=== PATIENT | female | born 1995 | race African-American/Black ===

== ENCOUNTER 2019-06-03 05:00 | Inpatient (IN) | payer OTHER ==
[2019-06-01 16:50] VITALS: BMI 21.6
[2019-06-03] MEDS ORDERED: ONDANSETRON 4 MG/2 ML VIAL IVPUSH PRN (06:56)
[2019-06-03] MEDS ORDERED: BISACODYL 5 MG TABLET.DR (FP) PO PRN (06:56)
[2019-06-03] MEDS ORDERED: ACETAMINOPHEN 325 MG TABLET (FP) PO PRN (06:56)
[2019-06-03] MEDS ORDERED: DOCUSATE SODIUM 100 MG CAPSULE (FP) PO PRN (06:56)
[2019-06-03] MEDS ORDERED: ceFAZolin SODIUM 1 GM VIAL ONE ×3 (07:03→17:35)
[2019-06-03] MEDS ORDERED: ROCURONIUM BROMIDE 50 MG/5 ML SYRINGE ONE (07:13)
[2019-06-03] MEDS ORDERED: PROPOFOL 20 ML ONE (07:13)
[2019-06-03] MEDS ORDERED: MIDAZOLAM HCL 2 MG/2 ML SINGLE DOSE VIAL ONE ×3 (07:14→07:22)
[2019-06-03] MEDS ORDERED: ROPIVACAINE HCL 0.5% 30ML VIAL ONE (07:16)
[2019-06-03] MEDS ORDERED: VASOPRESSIN 20 UNITS/ML VIAL IV ONE ×2 (07:29→07:30)
--- NOTE | 2019-06-03 07:35 | HP ---
History & Physical Update - History History: No Change - Physical Physical: No Change - Assessment Assessment: No Change - Plan Plan: No Change (Full H&P from 05/07/19 in paper chart)
[2019-06-03] MEDS ORDERED: ceFAZolin SODIUM 1 GM VIAL IVPB ONE (08:04)
[2019-06-03] MEDS ORDERED: LIDOCAINE HCL/PF 2% SDV 5ML VIAL ONE ×2 (08:11→12:35)
[2019-06-03] MEDS ORDERED: KETOROLAC TROMETHAMINE 30 MG/1 ML VIAL ONE ×2 (08:12→13:05)
[2019-06-03] MEDS ORDERED: DEXAMETHASONE SOD PHOSPHATE 4 MG/1 ML VIAL ONE ×2 (08:12→12:39)
[2019-06-03] MEDS ORDERED: GLYCOPYRROLATE 0.2 MG/1 ML VIAL ONE ×2 (08:34→13:05)
[2019-06-03] MEDS ORDERED: NEOSTIGMINE METHYLSULFATE 0.5 MG/ML - 10 ML MDV ONE ×2 (08:34→13:05)
--- NOTE | 2019-06-03 09:44 | OP ---
DATE OF OPERATION: 06/03/2019 PREOPERATIVE DIAGNOSIS: Leiomyomatous uterus. OPERATION: Abdominal myomectomy, cauterization of right ovarian endometriosis, and right ovarian cystectomy. POSTOPERATIVE DIAGNOSIS: Leiomyomatous uterus, Intramural myoma, right ovarian endometrioma, right ovarian cyst, and right endometriosis. SURGEON: Linda Acevedo MD DESCRIPTION OF PROCEDURE: The patient was taken to the operating room, placed in the supine position, prepped and draped in the usual sterile fashion. A time-out was performed in accordance with hospital regulations. A scalpel was then used to make a Pfannenstiel skin incision. Cautery was then used to go through the layers of the abdominal wall to the level of the fascia. The fascia was cut in the midline and cautery was then used to open the fascia in a smiling fashion. Mariya was then used to bluntly and sharply dissect the rectus muscle off the fascia. The muscle was split in the midline. The peritoneal cavity was entered, and carried upwards and downwards. A leiomyomatous uterus was exteriorized. A right ovarian cyst was noted, as well as right ovarian endometriosis. Pitressin was infiltrated in the serosa of the subserosal myoma, which was located pushing into the bladder. Cautery was then used to cut the uterus. Sharp and blunt dissection was used to exteriorize the 5-cm myoma. The myoma did not go into the cavity. 0 Vicryl was then used to close the muscle of the uterus in continuous locking fashion. An imbricating stitch using 2-0 V-Loc was then done. Attention was then drawn to the right ovary, where 2 cysts were noted, clear cysts, as well as an endometriosis. Cystectomy was performed and cauterization of endometriosis was done. 2-0 Vicryl was then used to close the cavity and a portion of Interceed was placed on the right ovary. Adhesions were noted and were removed in the fundus of the uterus. Interceed was placed and securely fixed on the anterior aspect of the incision of the uterus. The uterus was then interiorized. The pelvic cavity was cleaned with clean lap pads. The peritoneum was then closed using 0 Vicryl suture. The fascia was then closed using 0 Vicryl suture in 2 parts. Subcutaneous was then approximated using 2-0 Vicryl suture, and the skin was then closed using 3-0 Vicryl in subcuticular fashion. The wound was washed and dressed. The patient tolerated the procedure well and was taken to the recovery room in stable condition. LINDA ACEVEDO M.D. [id number] MTDD
[2019-06-03] MEDS ORDERED: traMADol HCL 50 MG TABLET PO PRN (10:49)
[2019-06-03] MEDS ORDERED: oxyCODONE HCL 5 MG TABLET PO PRN ×4 (10:49→10:53)
[2019-06-03] MEDS ORDERED: ONDANSETRON 4 MG/2 ML VIAL IVPUSH ONE (11:00)
[2019-06-03] MEDS ORDERED: ONDANSETRON 4 MG/2 ML VIAL ONE (11:03)
[2019-06-03] MEDS ORDERED: PROMETHAZINE HCL 25 MG/1 ML VIAL ONE (12:11)
[2019-06-03] MEDS ORDERED: PROMETHAZINE HCL 25 MG/1 ML VIAL IVPB ONE (12:18)
--- NOTE | 2019-06-03 12:21 | SURG ---
Surgery Manager Ccu Note Manager Ccu: Jorge Pedro PA-C Date of Service: 06/03/19 Diagnosis: Fibroid uterus, ovarian cyst Procedure: Abdominal myomectomy, Rt ovarian cystectomy, lysis of adhesions I was present for the entirety of the operative procedure. For further detail, please refer to operative report. Visit type - Case Type Case Type: Scheduled - Emergency Emergency Visit: No - New patient This patient is new to me today: Yes Date on this admission: 06/03/19 - Critical Care Critical Care patient: No
[2019-06-03] MEDS: LACTATED RINGERS SOLUTION 1,000 ML IV SCH ×2 (16:47→22:57)
[2019-06-03] MEDS ORDERED: DEXTROSE 5%-WATER - 50 ML IVPB ONE (17:35)
[2019-06-03] MEDS: CEFAZOLIN 1 GM in DEXTROSE 5%-WATER - 50 ML IVPB SCH ×2 (17:48→19:35)
[2019-06-03] MEDS: IBUPROFEN 800 MG/8 ML IJ IVPB PRN (18:50)
[2019-06-03] MEDS: oxyCODONE HCL 10 MG SUSTAINED ACTING TABLET PO SCH ×2 (19:00→21:33)
[2019-06-03 19:05] LABS: HEMATOCRIT 37.7 % (32.4-45.2); HEMOGLOBIN 12.4 GM/dL (10.7-15.3); MCH 31.3 pg (25.7-33.7); MEAN CELL VOLUME 94.9 fl (80-96); MEAN PLT VOLUME 8.5 fl (7.5-11.1); PLATELET COUNT 284 K/MM3 (134-434); RBC 3.97 M/mm3 (3.60-5.2); RDW 12.7 % (11.6-15.6); WHITE BLOOD COUNT 14.6 K/mm3 (4.0-10.0)
[2019-06-03 19:37] LABS: BLOOD UREA NITROGEN 6.6 mg/dL (7-18); CALCIUM 9.1 mg/dL (8.5-10.1); CREATININE 0.7 mg/dL (0.55-1.3)
[2019-06-04] MEDS ORDERED: ceFAZolin SODIUM 1 GM VIAL ONE (01:13)
[2019-06-04] MEDS ORDERED: DEXTROSE 5%-WATER - 50 ML IVPB ONE (01:14)
[2019-06-04] MEDS: CEFAZOLIN 1 GM in DEXTROSE 5%-WATER - 50 ML IVPB SCH (01:19)
[2019-06-04] MEDS ORDERED: oxyCODONE HCL 5 MG TABLET PO PRN ×2 (06:56)
--- NOTE | 2019-06-04 08:27 | PN ---
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 C/o incisional tenderness. Adequate pain control with medications ordered. She has gotten OOB and ambulated unassisted. Spivey remains to gravity. Denies n/v/f/c, CP, palpitations, SOB or GUAJARDO. Last Vital Signs Temp Pulse Resp BP Pulse Ox 98.2 F 102 H 20 120/73 98 06/04/19 05:47 06/04/19 05:47 06/04/19 05:47 06/04/19 05:47 06/03/19 21:00 Gen: nad Abd: all surgical ports c/d/i : spivey to gravity (clear) LE: scds bilat. soft. supple, nt Problem List - Problems (1) S/P abdominal hysterectomy Assessment/Plan: POD #1 s/p Abdominal myomectomy, Rt ovarian cystectomy, lysis of adhesions DC spivey and begin TOV OOB and ambulate Pain management PRN Tylenol for fever > 100.4F Incentive spirometer Reg diet DVT PPX f/u CBC DC planning in AM Code(s): Z90.710 - ACQUIRED ABSENCE OF BOTH CERVIX AND UTERUS
[2019-06-04] MEDS: LACTATED RINGERS SOLUTION 1,000 ML IV SCH ×2 (08:40→22:33)
[2019-06-04] MEDS: SIMETHICONE 80 MG TAB.CHEW (FP) PO PRN ×2 (08:44→23:38)
[2019-06-04 09:02] LABS: HEMATOCRIT 33.7 % (32.4-45.2); HEMOGLOBIN 11.2 GM/dL (10.7-15.3); MCH 31.4 pg (25.7-33.7); MCHC 33.2 g/dl (32.0-36.0); MEAN CELL VOLUME 94.5 fl (80-96); MEAN PLT VOLUME 8.6 fl (7.5-11.1); PLATELET COUNT 258 K/MM3 (134-434); RBC 3.56 M/mm3 (3.60-5.2); RDW 12.8 % (11.6-15.6); WHITE BLOOD COUNT 12.2 K/mm3 (4.0-10.0)
[2019-06-04 09:10] LABS: CALCIUM 8.5 mg/dL (8.5-10.1); CREATININE 0.7 mg/dL (0.55-1.3); POTASSIUM 3.7 mmol/L (3.5-5.1)
[2019-06-04] MEDS: ENOXAPARIN NA (PORCINE) 40 MG/0.4 ML DISP.SYRIN SQ SCH (10:41)
[2019-06-04] MEDS: oxyCODONE HCL 10 MG SUSTAINED ACTING TABLET PO SCH ×2 (10:41→21:06)
[2019-06-04] MEDS: IBUPROFEN 800 MG/8 ML IJ IVPB PRN (13:13)
[2019-06-05] MEDS: oxyCODONE HCL 10 MG SUSTAINED ACTING TABLET PO SCH (09:54)
[2019-06-05] MEDS: ENOXAPARIN NA (PORCINE) 40 MG/0.4 ML DISP.SYRIN SQ SCH (09:55)
[2019-06-05] MEDS: LACTATED RINGERS SOLUTION 1,000 ML IV SCH (09:56)
[2019-06-05 10:05] VITALS: BP 145/85; PULSE 106; TEMP 97.8
--- NOTE | 2019-06-05 11:14 | DS ---
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 Vital Signs: Vital Signs Temperature 97.8 F 06/05/19 10:00 Pulse Rate 106 H 06/05/19 10:00 Respiratory Rate 06/05/19 10:00 Blood Pressure 145/85 06/05/19 10:00 O2 Sat by Pulse Oximetry (%) 98 06/04/19 21:00 Constitutional: Yes: Well Nourished, No Distress Gastrointestinal: Yes: WNL, Soft Wound/Incision: Yes: Clean/Dry, Well Approximated Psychiatric: Yes: WNL, Alert, Oriented Labs: CBC, BMP 06/04/19 07:55 06/04/19 07:55 Discharge Summary Problems reviewed: Yes Reason For Visit: LEIOMYOM OF UTERUS Current Active Problems S/P abdominal hysterectomy (Acute) Procedures: Principal: Abdominal myomectomy Hospital Course: unremarkable Condition: Good - Instructions Diet, Activity, Other Instructions: Dr. Linda cAevedo Deputy Harbormaster discharge instructions Physical activity Resume your normal everyday activity as tolerated no heavy lifting or exercise until seen by your surgeon. You may walk unlimited ju of and climb stairs. You may resume driving the car when you feel safe and comfortable behind the wheel. No sexual activity as instructed by Dr. Acevedo. Wound care If you have a bandage, leave it on, and keep dry for 48-72 hours. After that time discard the outer bandage. If they are tapes on the skin under the out of bandage leave them in place. They will peel off in the next 7 to 10 days. Do Not Peel them off. You may shower the day after surgery. If there are tapes present on the skin, you may shower over them. Diet There are no dietary restrictions. Eat healthy, high-fiber foods. Drink 6 to 8 glasses of liquid each day. This will assist in keeping your bowels are regular. Pain management You may take Tylenol or acetaminophen or Ibuprofen (for example, Motrin, Advil etc.) from my pain prescription medication is ordered should be taken as prescribed for moderate to severe pain. Call Dr. Acevedo for any of the following: Severe pain not relieved by medication Fever of 101 or higher Excessive bleeding or drainage on dressing Inability to urinate Call the office at [phone] for an appointment in seven days. Disposition: HOME - Home Medications Comprehensive Discharge Medication List: Ambulatory Orders Diclofenac Sodium 50 mg PO PRN PRN 06/01/19 Ferrous Sulfate 325 mg PO BID 06/01/19 Ibuprofen [Motrin -] 600 mg PO QID #28 tablet 06/05/19
--- NOTE | 2019-06-07 14:48 | PATH ---
Surgical Pathology Report Patient Name: LUCIANO CASSIDY Med. Rec. #: [id number] /Age/Gender: 1995 (Age: 23) / F Account: [id number] Location: [address] [place] [address]/[facility] Taken: 06/03/2019 Received: 06/03/2019 Reported: 06/07/2019 Physicians: Linda Acevedo M.D. Specimen(s) Received A: FIBROID B: RIGHT OVARIAN CYST C: ADHESIONS Clinical History Leiomyoma of uterus Final Diagnosis A. FIBROID, ABDOMINAL MYOMECTOMY: 97 G, LEIOMYOMA, WITH DEGENERATIVE CHANGES AND DYSTROPHIC CALCIFICATION. B. OVARIAN CYST, RIGHT, CYSTECTOMY: CONSISTENT WITH ENDOMETRIOSIS. SEE COMMENT. C. ADHESIONS, EXCISION: DENSE FIBROUS ADHESIONS WITH AREAS CONSISTENT WITH ENDOMETRIOSIS. SEE COMMENT. Comment: Part B & C, Immunohistochemical stains performed at [place], [place] ([id number]) and interpreted at [facility] show CD10 highlights endometrial stroma. Positive and negative controls (internal if applicable) show appropriate results. Electronically Signed Sinai Smith M.D. Gross Description A. Received in formalin labeled "fibroid," is a 97 g, 7.0 x 6.3 x 4.5 cm calcified fibroid. Sectioning reveals degenerative parenchyma. Marketing Agent sections are submitted in 4 cassettes, following decalcification. B. Received in formalin labeled "right ovarian cyst," are 3 quick-pink soft tissue fragments ranging from 0.7 x 0.4 x 0.2 cm to 1.0 x 0.8 x 0.3 cm, possibly consistent with portions of a disrupted ovarian cyst. The specimens are submitted in toto in one cassette. C. Received in formalin labeled "adhesions," is a 2.8 x 1.6 x 0.3 cm aggregate of red-brown, hemorrhagic portions of soft tissue. The specimen is submitted in toto in one cassette. /06/03/2019 saudi06/03/2019
== END 2019-06-05 14:32 | disposition home or self-care (01) | DRG 513 ==
LOC: JSAMEDAYSX 05:00 → J6S 16:49
PROVIDERS: ADMIT Obstetrics & Gynecology; ATTEND Obstetrics & Gynecology
PROC: 0U5B0ZZ Destruction of Endometrium, Open Approach (ICD-10-PCS; 2019-06-03)
PROC: 0UB00ZZ Excision of Right Ovary, Open Approach (ICD-10-PCS; 2019-06-03)
PROC: 0UN90ZZ Release Uterus, Open Approach (ICD-10-PCS; 2019-06-03)
PROC: 0UB90ZZ Excision of Uterus, Open Approach (ICD-10-PCS; principal; 2019-06-03 07:30)
DX: N80.1 Endometriosis of ovary (principal); D25.2 Subserosal leiomyoma of uterus; N73.6 Female pelvic peritoneal adhesions (postinfective)
CPT/HCPCS: 36415; 80048; 84703; 85027; 86850; 86900; 86901; 88304-TC; 88305-TC; 94010; 94760

== ENCOUNTER 2019-07-26 09:58 | Emergency (ER) | payer OTHER ==
[2019-07-26 10:22] VITALS: BMI 23.3
[2019-07-26] MEDS ORDERED: SODIUM CHLORIDE 1,000 ML IV ONE ×3 (10:51→16:42)
[2019-07-26] MEDS ORDERED: ACETAMINOPHEN 1000 MG/100 ML VIAL (NON FORMULARY) IVPB ONE (11:37)
--- NOTE | 2019-07-26 11:37 | PDOC ---
Documentation entered by Shanell Garcia SCRIBE, acting as scribe for Fredrick Del Rosario MD. Fredrick Del Rosario MD: This documentation has been prepared by the Radha toribio Brenda, SCRIBE, under my direction and personally reviewed by me in its entirety. I confirm that the documentation accurately reflects all work, treatment, procedures, and medical decision making performed by me. History of Present Illness - General Chief Complaint: Pain Stated Complaint: SENT BY DOC Time Seen by Provider: 07/26/19 10:51 History Source: Patient Exam Limitations: No Limitations - History of Present Illness Initial Comments: 07/26/19 10:56 The patient is a 24 year old female with no significant PMH who presents to the ED for vaginal pressure-like pain. Patient reports that she underwent a Myomectomy on 06/17/2019, where she felt subsequent pain in her vaginal area. Pat ient reports that the pain s/p surgery subsided and she felt fine during the month of June, with normal bowel movements and a normal menstrual period in the first week of June. Patient states that on 07/22/2019 she began to feel pressure-like pain in her vagina which was exacerbated by movements, urinating and bowel movements. Patient reports that she thought it was gas due to slight difficulty passing a bowel movement but states that the pain became progressively worse. Patient denies any sexual intercourse since 05/13. The patient denies vaginal bleeding and vaginal discharge. Denies chest pain, palpitations, shortness of breath, headache and dizziness. Denies fever, chills, vomiting, diarrhea. Denies dysuria, frequency, urgency and hematuria. Allergies: NKA Past surgical history: Myomectomy Social history: No reported hx of tobacco use, alcohol use or illicit drug use. PCP: Edwige KIMBROUGH: Jayce Past History - Past Medical History Allergies/Adverse Reactions: Allergies Allergy/AdvReac Type Severity Reaction Status Date / Time No Known Drug Allergies Allergy Verified 07/29/19 07:24 Home Medications: Ambulatory Orders Ibuprofen [Motrin -] 800 mg PO PRN PRN 07/29/19 Oxycodone HCl/Acetaminophen [Percocet 5-325 mg Tablet] 1 tab PO Q4H PRN #10 tablet MDD 6 07/29/19 - Psycho Social/Smoking Cessation Hx Smoking History: Never smoked Information on smoking cessation initiated: No Hx Alcohol Use: No Drug/Substance Use Hx: No Review of Systems - Review of Systems Able to Perform ROS?: Yes Comments:: 07/26/19 11:14 Constitutional - Pt denies Fever, Chills, weakness, HEENT: denies vision changes, sore throat Respiratory: Denies cough, sob, hemoptysis Cardiac: denies chest pain, palpitations, light headedness, leg swelling Abd/GI: (+) Mild LLQ Pain and nausea. Denies vomiting, blood per rectum, melena, diarrhea : denies dysuria, frequency, discharge Musculskelatal - denies back pain, joint swelling skin - denies bruising, erythema, rash neurological: denies headache, numbness, focal weakness, tingling, ataxia, weakness hematologic: denies anemia, easy bruising, easy bleeding *Physical Exam - Vital Signs Last Vital Signs Temp Pulse Resp BP Pulse Ox 97.8 F 129 H 16 159/87 98 07/26/19 10:18 07/26/19 10:18 07/26/19 10:18 07/26/19 10:18 07/26/19 10:18 - Physical Exam 07/26/19 10:53 GENERAL: The patient is awake, alert, and fully oriented, Nontoxic - in no acute distress. HEAD: Normocephalic, atraumatic. EYES: extraocular movements intact, sclera anicteric, conjunctiva clear. ENT: Normal voice, dry mucous membranes. NECK: Normal range of motion, supple LUNGS: Breath sounds equal, clear to auscultation bilaterally. No wheezes, no rhonchi, no rales. HEART: Rtachycardic, no m/r/g ABDOMEN: Soft, mild lower bd discomfort (pt denies pain), No guarding, no rebound. No CVA tenderness EXTREMITIES: Normal range of motion, no edema. NEUROLOGICAL: No facial assymetry, Normal speech, PSYCH: Normal mood, normal affect. SKIN: Warm, Dry, normal turgor, 07/26/19 13:48 pelvic: Whitish physiologic discharge in vaginal vault, no masses or bleeding, no rashes or vesicles noted. Mild diffuse lower abdominal tenderness Heart Score/ECG Review - ECG Impressions Comment:: 07/26/19 10:55 Twelve-lead EKG was performed and reviewed by me. There is normal sinus rhythm with a rate of 137 The axis is normal. The intervals are normal. There is normal R wave progression Nonspecific T wave abnormality Impression: Sinus tachycardia ED Treatment Course - LABORATORY CBC & Chemistry Diagram: 07/26/19 11:44 07/26/19 11:44 Medical Decision Making - Medical Decision Making 07/26/19 10:54 24-year-old approximately 8 weeks status post myomectomy presenting with 4 days of lower abdominal pain, pressure/vaginal pain that seems to be worse with bowel movements and urination. Patient denies any fever, chills, vomiting, back pain, burning with urination, diarrhea. Patient noted to be tachycardic upon arrival Differential for the patient's symptoms includes possible UTI, consider possible complications secondary to myomectomy however as patient has been fine for 8 weeks this is unlikely. Will place IV will obtain blood work we will hydrate the patient Will reassess, consider possible CT of the abdomen if urine is negative UTI 07/26/19 13:48 The patient's blood work was reviewed it is unremarkable the patient's abdomen is soft and nontender upon further evaluation the patient notes that her uncomfortable discomfort is primarily in the vulva and not on her pelvic/abdomen manual region. Patient states he is sexually active but has not been in several months. The patient's heart rate is persistently elevated we will give the patient further fluid resuscitation. Patient's abdomen is nontender however when I palpate around her scar the patient denies any pain but does wince. I discussed with the patient regarding the need for CT for further evaluation however the patient is cautious about the CT our plan is to hydrate the patient and if she is still tachycardic we will obtain a CT. 07/26/19 16:27 The patient's heart rate remains persistently tachycardic after 2 L of normal saline and it is almost unchanged with heart rate of 129. The patient's abdomen remains fairly benign however she does wince when I palpate in the lower abdomen. We will obtain a CT of the abdomen to further evaluate her abdominal pain/tachycardia. case signed out to dr. Mcallister to doris thomson pt and reassess/disposition Discharge - Discharge Information Problems reviewed: Yes Clinical Impression/Diagnosis: Pelvic pain, Adnexal cyst Condition: Good Disposition: HOME - Follow up/Referral Referrals: Linda Acevedo MD [Staff Physician] - Mahad Gibbons MD [Primary Care Provider] - - Patient Discharge Instructions Patient Printed Discharge Instructions: DI for Ovarian Cyst, DI for Pelvic Pain Additional Instructions: Please follow-up with Dr. Eduardo tomorrow Take Motrin Or Tylenol for pain - Post Discharge Activity
[2019-07-26 11:48] LABS: URINE APPEARANCE CLOUDY; URINE BILIRUBIN NEGATIVE (NEGATIVE); URINE COLOR YELLOW; URINE GLUCOSE (UA) NEGATIVE (NEGATIVE); URINE KETONE 1+ (NEGATIVE); URINE LEUK ESTERASE NEGATIVE (NEGATIVE); URINE NITRITE NEGATIVE (NEGATIVE); URINE PROTEIN TRACE (NEGATIVE); URINE UROBILINOGEN 0.2 mg/dL (0.2-1.0)
[2019-07-26 11:56] LABS: BASO % 0.3 % (0-2.0); EOS % 0.1 % (0-4.5); HEMOGLOBIN 13.7 GM/dL (10.7-15.3); LYMPH % 10.8 % (8-40); MCH 31.6 pg (25.7-33.7); MCHC 33.5 g/dl (32.0-36.0); MEAN CELL VOLUME 94.3 fl (80-96); MEAN PLT VOLUME 8.7 fl (7.5-11.1); MONO % 16.2 % (3.8-10.2); NEUT % 72.6 % (42.8-82.8); PLATELET COUNT 252 K/MM3 (134-434); RBC 4.35 M/mm3 (3.60-5.2); RDW 12.9 % (11.6-15.6); WHITE BLOOD COUNT 6.5 K/mm3 (4.0-10.0)
[2019-07-26 12:25] LABS: ALBUMIN 4.6 g/dl (3.4-5.0); BILIRUBIN,TOTAL 0.7 mg/dL (0.2-1); BLOOD UREA NITROGEN 7.6 mg/dL (7-18); CALCIUM 9.5 mg/dL (8.5-10.1); CREATININE 0.7 mg/dL (0.55-1.3); POTASSIUM 3.7 mmol/L (3.5-5.1); TOT PROT 8.5 g/dl (6.4-8.2)
--- NOTE | 2019-07-26 14:30 | EKG ---
Test Reason : Blood Pressure : / mmHG Vent. Rate : 118 BPM Atrial Rate : 118 BPM P-R Int : 144 ms QRS Dur : 084 ms QT Int : 328 ms P-R-T Axes : 069 055 036 degrees QTc Int : 459 ms SINUS TACHYCARDIA OTHERWISE NORMAL ECG NO PREVIOUS ECGS AVAILABLE Confirmed by Caitlyn Short ([id number]) on 07/26/2019 2:29:51 PM Referred By: Confirmed By:Caitlyn Short
[2019-07-26 18:56] VITALS: TEMP 98.6
[2019-07-26] MEDS ORDERED: FLUCONAZOLE 100 MG TABLET (UD) PO ONE (21:11)
[2019-07-26] MEDS ORDERED: KETOROLAC TROMETHAMINE 30 MG/1 ML VIAL IVPUSH ONE (21:12)
--- NOTE | 2019-07-26 21:14 | PDOC ---
*Physical Exam - Vital Signs Last Vital Signs Temp Pulse Resp BP Pulse Ox 98.6 F 113 H 20 142/88 100 07/26/19 18:00 07/26/19 18:00 07/26/19 18:00 07/26/19 18:00 07/26/19 18:00 ED Treatment Course - LABORATORY CBC & Chemistry Diagram: 07/26/19 11:44 07/26/19 11:44 - ADDITIONAL ORDERS Additional order review: Laboratory Results 07/26/19 07/26/19 07/26/19 11:44 11:30 11:30 Sodium 136 Potassium 3.7 Chloride 105 Carbon Dioxide 23 Anion Gap 8 BUN 7.6 Creatinine 0.7 Est GFR (CKD-EPI)AfAm 140.55 Est GFR (CKD-EPI)NonAf 121.27 Random Glucose 100 Calcium 9.5 Total Bilirubin 0.7 AST 10 L ALT 14 Alkaline Phosphatase 62 Total Protein 8.5 H Albumin 4.6 TSH 1.78 Urine Color Yellow Urine Appearance Cloudy Urine pH 5.0 Ur Specific [place] 1.029 Urine Protein Trace Urine Glucose (UA) Negative Urine Ketones 1+ H Urine Blood Negative Urine Nitrite Negative Urine Bilirubin Negative Urine Urobilinogen 0.2 Ur Leukocyte Esterase Negative Urine HCG, Qual Negative 07/26/19 11:44 RBC 4.35 MCV 94.3 MCHC 33.5 RDW 12.9 MPV 8.7 Neutrophils % 72.6 Lymphocytes % 10.8 Monocytes % 16.2 H Eosinophils % 0.1 Basophils % 0.3 - Medications Given in the ED: ED Medications Discontinued Medications Generic Name Dose Route Start Last Admin Trade Name Freq PRN Reason Stop Dose Admin Acetaminophen 1,000 mg 07/26/19 11:37 07/26/19 11:55 Ofirmev Injection - IVPB 07/26/19 11:38 1,000 mg ONCE ONE Administration Sodium Chloride 1,000 mls @ 1,000 mls/hr 07/26/19 10:51 07/26/19 11:55 Normal Saline - IV 07/26/19 11:50 1,000 mls/hr .Q1H ONE Administration Sodium Chloride 1,000 mls @ 1,000 mls/hr 07/26/19 13:43 07/26/19 13:55 Normal Saline - IV 07/26/19 14:42 1,000 mls/hr .Q1H ONE Administration Sodium Chloride 1,000 mls @ 1,000 mls/hr 07/26/19 16:42 07/26/19 16:50 Normal Saline - IV 07/26/19 17:41 1,000 mls/hr .Q1H ONE Administration Discharge - Discharge Information Problems reviewed: Yes Clinical Impression/Diagnosis: Pelvic pain, Adnexal cyst Condition: Good Disposition: HOME - Admission No - Follow up/Referral Referrals: Mahad Gibbons MD [Primary Care Provider] - Linda Acevedo MD [Staff Physician] - - Patient Discharge Instructions Patient Printed Discharge Instructions: DI for Pelvic Pain, DI for Ovarian Cyst Additional Instructions: Please follow-up with Dr. Eduardo tomorrow Take Motrin Or Tylenol for pain - Post Discharge Activity
[2019-07-26] MEDS ORDERED: KETOROLAC TROMETHAMINE 30 MG/1 ML VIAL ONE (21:23)
[2019-07-26] MEDS ORDERED: FLUCONAZOLE 100 MG TABLET (UD) ONE (21:23)
[2019-07-26 22:38] VITALS: BP 140/90; PULSE 107
--- NOTE | 2019-07-27 05:47 | CONS ---
DATE OF CONSULTATION: 07/26/2019 EMERGENCY DEPARTMENT GYNECOLOGY CONSULTATION REQUESTING PHYSICIAN: Barbra Mcallister MD HISTORY OF PRESENT ILLNESS: Patient is a 23-year-old black female, not known to me previously, who enters emergency room with complaint of vaginal and low abdominal pain. Patient is para 0. Not sexually active at present. No control pills. About 6 weeks ago, patient underwent multiple myomectomies by Dr. Acevedo. Her recovery was uneventful. Patient was observed in the emergency room for awhile. All her lab work came back within normal limits. A CAT scan was normal without any pathology relating to her bowel, intraabdominal structures, or uterus. The only unusual finding was 7-cm left adnexal cystic structure. Patient has no allergies. Patient is somewhat difficult to read. She states that she is only in mild pain but she is very afraid of being touched and examined. Patient absolutely refused to have a vaginal examination for quite some time. Her reactions are somewhat immature. Her abdomen is soft. There is no surgical abdomen, no guarding, etc. I agree with Dr. Mcallister' findings. Pelvic examination attempted. External genitalia, vulva, BUS essentially within normal limits. No lesion. Mild yeast infection. Bimanual examination was very difficult because patient was tensing, screaming. Cervix is closed. Uterus seemed to be within normal limits, and I could not palpate the left ovarian cyst. IMPRESSION: 1. Low abdomen and vaginal pain of unknown etiology. 2. Left ovarian cyst that was diagnosed with CAT scan but patient's complaints do not seem to be coming from that area. 3. Recent status post abdominal myomectomies without postoperative problems. PLAN: Patient was given Tylenol IV and will have some NSAIDs. Explained that cyst may be addressed with laparoscopy and patient absolutely refuses to even hear it. She seems to be stable, under control, and with better railroad mechanic on her pain situation, she might be discharged. I suggested that she would see Dr. Acevedo tomorrow in her office, and follow up with ultrasound. Fully discussed with patient and emergency room attending. Dr. Mcallister and I are in agreement. All questions answered. KATHERYN TODD MD [id number]
--- NOTE | 2019-07-27 10:34 | EKG ---
Test Reason : Blood Pressure : / mmHG Vent. Rate : 137 BPM Atrial Rate : 137 BPM P-R Int : 120 ms QRS Dur : 082 ms QT Int : 370 ms P-R-T Axes : 070 062 054 degrees QTc Int : 558 ms SINUS TACHYCARDIA NONSPECIFIC T WAVE ABNORMALITY ABNORMAL ECG NO PREVIOUS ECGS AVAILABLE Confirmed by Fito Bray MD ([id number]) on 07/27/2019 10:34:41 AM Referred By: Confirmed By:Fito Bray MD
== END 2019-07-26 21:40 | disposition home or self-care (01) ==
LOC: MERGE 09:58 → EDBD 09:58 → JER 09:58
PROC: 3E0337Z Introduction of Electrolytic and Water Balance Substance into Peripheral Vein, Percutaneous Approach (ICD-10-PCS; principal; 2019-07-26)
PROC: 3E033NZ Introduction of Analgesics, Hypnotics, Sedatives into Peripheral Vein, Percutaneous Approach (ICD-10-PCS; 2019-07-26)
PROC: 3E0333Z Introduction of Anti-inflammatory into Peripheral Vein, Percutaneous Approach (ICD-10-PCS; 2019-07-26)
DX: R10.2 Pelvic and perineal pain (principal); N83.202 Unspecified ovarian cyst, left side
CPT/HCPCS: 36415; 74177-TC; 80053; 81003; 84443; 84703; 85025; 93005; 93010; 96361; 96374; 96375; 99285-25; J0131; J7030; Q9967

== ENCOUNTER 2019-07-29 06:00 | Day surgery (SDC) | payer OTHER ==
[2019-07-29] MEDS ORDERED: DEXAMETHASONE SOD PHOSPHATE 4 MG/1 ML VIAL ONE (07:27)
[2019-07-29] MEDS ORDERED: MIDAZOLAM HCL 2 MG/2 ML SINGLE DOSE VIAL ONE (07:27)
[2019-07-29] MEDS ORDERED: ONDANSETRON 4 MG/2 ML VIAL ONE ×2 (07:27→12:13)
--- NOTE | 2019-07-29 07:47 | HP ---
History & Physical Update - History History: No Change - Physical Physical: No Change - Assessment Assessment: No Change - Plan Plan: No Change (no change since visit with Dr Acevedo on 07/27/19.)
[2019-07-29] MEDS ORDERED: SUCCINYLCHOLINE CHLORIDE 200 MG/10 ML SYRINGE ONE (07:53)
[2019-07-29] MEDS ORDERED: PROPOFOL 20 ML ONE ×2 (07:53)
[2019-07-29] MEDS ORDERED: ROCURONIUM BROMIDE 50 MG/5 ML SYRINGE ONE (07:53)
[2019-07-29] MEDS ORDERED: ceFAZolin SODIUM 1 GM VIAL IVPB ONE (08:10)
[2019-07-29] MEDS ORDERED: BUPIVACAINE HCL/PF 0.5% (5MG/ML) 10 ML VIAL IJ ONE ×2 (08:18→09:05)
[2019-07-29] MEDS ORDERED: NEOSTIGMINE METHYLSULFATE 0.5 MG/ML - 10 ML MDV ONE (09:15)
[2019-07-29] MEDS ORDERED: ONDANSETRON 4 MG/2 ML VIAL IVPUSH PRN (09:43)
[2019-07-29] MEDS ORDERED: oxyCODONE HCL 5 MG TABLET PO PRN ×2 (09:43)
[2019-07-29] MEDS ORDERED: LACTATED RINGERS SOLUTION 1,000 ML IV SCH (09:45)
--- NOTE | 2019-07-29 10:05 | OP ---
Operative Note - Note: Operative Date: 07/29/19 Pre-Operative Diagnosis: Left adenexal mass. left ovarian cyst Operation: laparoscopic left ovarian cystectomy. Lysis of adhesions Post-Operative Diagnosis: Same as Pre-op Surgeon: Linda Acevedo Battery Checker: Tete Hernandez Anesthesiologist/MORTGAGE LOAN OFFICER: Fito Simon Anesthesia: General, Local Specimens Removed: left ovarian cyst wall Estimated Blood Loss (mls): 150 Operative Report Dictated: Yes
--- NOTE | 2019-07-29 10:06 | SURG ---
Surgery Timber Faller Note Timber Faller: Tete Hernandez PA-C Date of Service: 07/29/19 Diagnosis: Left adenexal mass. left ovarian cyst Procedure: laparoscopic left ovarian cystectomy. Lysis of adhesions I was present for the entirety of the operative procedure. For further detail, please refer to operative report. Visit type - Case Type Case Type: Scheduled - Emergency Emergency Visit: No - New patient This patient is new to me today: Yes Date on this admission: 07/29/19
[2019-07-29 11:43] VITALS: TEMP 97.4
[2019-07-29] MEDS ORDERED: ONDANSETRON 4 MG/2 ML VIAL IVPB ONE (12:15)
[2019-07-29] MEDS ORDERED: oxyCODONE HCL 5 MG TABLET ONE ×2 (13:47→13:49)
[2019-07-29] MEDS ORDERED: oxyCODONE HCL 5 MG TABLET PO ONE (13:50)
[2019-07-29 16:05] VITALS: BP 130/80; PULSE 74
--- NOTE | 2019-07-30 17:44 | OP ---
DATE OF OPERATION: 07/29/2019 PREOPERATIVE DIAGNOSIS: Left ovarian cyst. OPERATION: Laparoscopic ovarian cystectomy as well as lysis of adhesions. POSTOPERATIVE DIAGNOSIS: Left ovarian cyst, endometriosis. SURGEON: Mary Gardiner MD TRIAL LAWYER: CECE Courtney ANESTHESIOLOGIST: Fito Simon MD ANESTHESIA: General. SPECIMEN REMOVED: Left ovarian cyst wall. ESTIMATED BLOOD LOSS: About 150 mL. PROCEDURE: Patient was taken to the operating room, placed in dorsal lithotomy position. Prepped and draped in the usual sterile fashion. Time-out was performed in accordance with hospital regulation. Baptiste catheter was inserted into the bladder. Attention was then drawn to the umbilicus where a 5-mm umbilical incision was made. Incisions were also made in left and right lower abdomen; 5-mm trocars were inserted under direct visualization after laparoscope and camera had been attached. Visualization revealed about a 5- to 6-cm large ovarian cyst as well as numerous adhesions. Uterus had been stuck. Adhesions were seen from the uterus to the bladder. Also bowel adhesions were also seen. Bowel was seen attached to the uterus. Some lysis of adhesions had been done with the Endo Jayshree, and bowel was removed in order to locate the large, large ovarian cyst. Cautery of the ovary was done. Clear cyst fluid was seen coming out of the ovary. Grasper was then used to remove the cyst wall using the blunt and sharp technique. Portions of the cyst were removed and submitted to Pathology. More lysis of adhesions had been done, dense and thick adhesions. Appendix was seen stuck to the ovary where blunt dissection was used to remove the appendix from the ovary. Patient has a history of endometriosis. No clear endometriosis had been seen; however, numerous adhesions were seen from uterus to the adnexal region, which lysis of adhesions had been performed the patient organ. After cyst wall had been removed from the cavity, CO2 was achieved using coagulation. All instruments were removed. CO2 was removed from the abdomen. Incisions were then closed using 3-0 Vicryl sutures in subcuticular fashion. Wound was washed and dressed. Patient had tolerated procedure well. Again, estimated blood loss was about 150 mL. MARY GARDINER M.D. [id number]
--- NOTE | 2019-07-30 18:01 | PATH ---
Surgical Pathology Report Patient Name: LUCIANO CASSIDY [facility]. Rec. #: [id number] /Age/Gender: 1995 (Age: 24) / F Account: [id number] Location: [facility] SURGICAL Taken: 07/29/2019 Received: 07/29/2019 Reported: 07/30/2019 Physicians: Linda Acevedo M.D. Specimen(s) Received LEFT OVARIAN CYST Clinical History Ovarian cyst Final Diagnosis OVARIAN CYST, LEFT, LAPAROSCOPIC OVARIAN CYSTECTOMY: OVARIAN TISSUE WITH CYSTIC FOLLICLE(S). Electronically Signed Sinai Smith M.D. Gross Description Received in formalin labeled "left ovarian cyst," is a 2.5 x 1.7 x 0.3 cm aggregate of quick-pink soft tissue fragments, consistent with a disrupted ovarian cyst. The specimen is entirely submitted in one cassette. /07/29/2019 saudi/07/29/2019
== END 2019-07-29 15:20 | disposition home or self-care (01) ==
LOC: JASU-SURG 06:00
PROVIDERS: ATTEND Obstetrics & Gynecology
PROC: 0UB14ZZ Excision of Left Ovary, Percutaneous Endoscopic Approach (ICD-10-PCS; principal; 2019-07-29 07:30)
DX: N83.202 Unspecified ovarian cyst, left side (principal)
CPT/HCPCS: 88305-TC; 94760